=== PATIENT | male | born 1935 | race Caucasian/White ===

== ENCOUNTER 2022-11-20 16:47 | Emergency (ER) | payer MEDICARE, MEDICAID, SELFPAY ==
--- NOTE | ~2022-11-20 | XR_ITS ---
EXAMINATION: XR CHEST CLINICAL INFORMATION: Failure to thrive COMPARISON: None available. TECHNIQUE: Frontal view of the chest was obtained. FINDINGS: No significant abnormality is noted involving the heart, lungs, mediastinum, bony thorax or soft tissues. XR/XR chest 1V IMPRESSION: Unremarkable examination.
--- NOTE | 2022-11-20 17:12 | ED_ITS ---
HPI - General Adult General Chief complaint: General Medical <GENNARO Falcon - Last Filed: 11/20/22 17:18> Stated complaint: failure to thrive <GENNARO Falcon - Last Filed: 11/20/22 17:18> Time Seen by Provider: 11/20/22 21:42 <GENNARO Falcon - Last Filed: 11/20/22 17:18> Source: patient <Jim Costello MD - Last Filed: 11/21/22 06:14> Mode of arrival: EMS <Jim Costello MD - Last Filed: 11/21/22 06:14> Limitations: no limitations <Jim Costello MD - Last Filed: 11/21/22 06:14> History of Present Illness HPI narrative: 87-year-old male presents with difficulty taking care of himself. Patient reports having been discharged not too long ago from [facility]. Since then, he has had increasing difficulty taking care of himself. He lives by hi mself at home. He has been having difficulty taking his medications, eating and other ADLs. Patient denies any fevers, chills, cough, nausea, vomiting. He had 1 episode of diarrhea yesterday but that has since resolved. Denies any abdominal pain, urinary frequency, urgency or dysuria. He says this has been going on over the past 1-2 months and has been progressively getting worse. He denies any focal neurologic deficits. He describes as generalized weakness as severe in nature. Patient is unable to ambulate without significant assistance. There is no clear relieving or exacerbating features per <Jim Costello MD - Last Filed: 11/21/22 06:14> Related Data Home medications: Home Medications Medication Instructions Recorded Confirmed apixaban 5 mg tablet (Eliquis) 5 mg PO BID 11/21/22 11/21/22 cyanocobalamin (vitamin B-12) 1,000 mcg PO DAILY 11/21/22 11/21/22 1,000 mcg tablet lorazepam 1 mg tablet 1 mg PO BID PRN anxiety 11/21/22 11/21/22 metoprolol tartrate 50 mg tablet 50 mg PO BID 11/21/22 11/21/22 mirtazapine 30 mg tablet 30 mg PO BEDTIME 11/21/22 11/21/22 sertraline 25 mg tablet 25 mg PO DAILY 11/21/22 11/21/22 tamsulosin 0.4 mg capsule 0.4 mg PO BEDTIME 11/21/22 11/21/22 Previous Rx's Medication Instructions Recorded lorazepam 1 mg tablet (Ativan) 1 mg PO BID PRN anxiety #30 tabs 11/25/22 <GENNARO Falcon - Last Filed: 11/20/22 17:18> Allergies/adverse reactions: Allergies Allergy/AdvReac Type Severity Reaction Status Date / Time No Known Allergies Allergy Verified 11/20/22 17:14 <GENNARO Falcon - Last Filed: 11/20/22 17:18> [facility] Social History Social History: Social History Alcohol intake: never Smoked in Last 30 Days: No Use of substances other than those prescribed or required for medical reasons: No Advance Directives: Yes Advance Directives on File: Yes Advance Directives Date on File: 11/22/22 <GENNARO Falcon - Last Filed: 11/20/22 17:18> Physical Exam ED Vital Signs: Vital Signs - 24 hr 11/24/22 16:26 11/24/22 19:50 11/25/22 06:00 Temperature 97.6 F 98.1 F 98.6 F Pulse Rate 65 66 57 Respiratory Rate 16 18 15 Blood Pressure 116/61 113/63 125/62 Pulse Oximetry 98 97 98 Oxygen Delivery Method Room Air Room Air Room Air 11/25/22 09:17 Temperature Pulse Rate 70 Respiratory Rate 16 Blood Pressure 130/57 L Pulse Oximetry 97 Oxygen Delivery Method Room Air BMI result Body Mass Index 32.5 <GENNARO Falcon - Last Filed: 11/20/22 17:18> Vital Signs - 24 hr 11/24/22 16:26 11/24/22 19:50 11/25/22 06:00 Temperature 97.6 F 98.1 F 98.6 F Pulse Rate 65 66 57 Respiratory Rate 16 18 15 Blood Pressure 116/61 113/63 125/62 Pulse Oximetry 98 97 98 Oxygen Delivery Method Room Air Room Air Room Air 11/25/22 09:17 Temperature Pulse Rate 70 Respiratory Rate 16 Blood Pressure 130/57 L Pulse Oximetry 97 Oxygen Delivery Method Room Air BMI result Body Mass Index 32.5 <Jim Costello MD - Last Filed: 11/21/22 06:14> Vital Signs - 24 hr 11/24/22 16:26 11/24/22 19:50 11/25/22 06:00 Temperature 97.6 F 98.1 F 98.6 F Pulse Rate 65 66 57 Respiratory Rate 16 18 15 Blood Pressure 116/61 113/63 125/62 Pulse Oximetry 98 97 98 Oxygen Delivery Method Room Air Room Air Room Air 11/25/22 09:17 Temperature Pulse Rate 70 Respiratory Rate 16 Blood Pressure 130/57 L Pulse Oximetry 97 Oxygen Delivery Method Room Air BMI result Body Mass Index 32.5 <Dee Dee Harris NP - Last Filed: 11/23/22 12:40> Vital Signs - 24 hr 11/24/22 16:26 11/24/22 19:50 11/25/22 06:00 Temperature 97.6 F 98.1 F 98.6 F Pulse Rate 65 66 57 Respiratory Rate 16 18 15 Blood Pressure 116/61 113/63 125/62 Pulse Oximetry 98 97 98 Oxygen Delivery Method Room Air Room Air Room Air 11/25/22 09:17 Temperature Pulse Rate 70 Respiratory Rate 16 Blood Pressure 130/57 L Pulse Oximetry 97 Oxygen Delivery Method Room Air BMI result Body Mass Index 32.5 <GENNARO Grajeda - Last Filed: 11/22/22 17:54> Vital Signs - 24 hr 11/24/22 16:26 11/24/22 19:50 11/25/22 06:00 Temperature 97.6 F 98.1 F 98.6 F Pulse Rate 65 66 57 Respiratory Rate 16 18 15 Blood Pressure 116/61 113/63 125/62 Pulse Oximetry 98 97 98 Oxygen Delivery Method Room Air Room Air Room Air 11/25/22 09:17 Temperature Pulse Rate 70 Respiratory Rate 16 Blood Pressure 130/57 L Pulse Oximetry 97 Oxygen Delivery Method Room Air BMI result Body Mass Index 32.5 <GENNARO Webster - Last Filed: 11/25/22 12:51> GEN: Well developed, no acute distress, alert, oriented HEENT: Normocephalic, atraumatic, normal external ears, nose appears normal, no oropharyngeal edema or exudates Eyes: Normal to appearance Neck: Supple, no lymphadenopathy Respiratory: Talks in complete sentences, no respiratory distress, clear to auscultation bilaterally Cardiovascular: Regular rate and rhythm, no murmurs rubs or gallops Abdomen: Soft, nontender, nondistended, no guarding, no rebound Back: No CVA tenderness Extremities: No clubbing cyanosis or edema Neurologic: No focal neurologic deficits, cranial nerves 2-12 intact, strength is 5/5 bilaterally Skin: No rash <Jim Costello MD - Last Filed: 11/21/22 06:14> Course Course Course Narrative: RME--87yo M with PMHx HTN, on Eliquis, OA, Dementia, c/o presenting to ED with daughter c/o FTT worsening over the past few weeks. Daughter reports patient unable to care for himself, decreased p.o. intake, not taking medications, unsteady on feet. Patient lives home alone, periodically people check on him, feels patient is not safe. Patient with multiple hospital visits to [facility] and [facility], daughter states patient keeps getting discharged EKG, labs, UA, CXR, COVID/FLU ordered <GENNARO Falcon - Last Filed: 11/20/22 17:18> Reevaluation(s) Reevaluation #1: The workup is currently complete. There are no significant metabolic abnormalities. Chest x-ray was without pneumonia. There is no evidence of urinary tract infection. At this point, patient will be held overnight pending Case Management Physical therapy evaluation for short-term rehabilitation or other form of facility placement. <Jim Costello MD - Last Filed: 11/21/22 06:14> Time: 21:58 <Jim Costello MD - Last Filed: 11/21/22 06:14> Reevaluation #2: Receive records from [facility]. Patient was admitted on October 16, 2022. He was diagnosed with altered mental status, troponin elevation, atrial fibrillation with rapid ventricular response hypertension and depression. He was discharged on Eliquis. All patient also per reading of the chart has a history of dementia. Will order patient's medications. <Jim Costello MD - Last Filed: 11/21/22 06:14> Reevaluation #3: patient placed in physician obs pending case management and PT eval <Jim Costello MD - Last Filed: 11/21/22 06:14> Time: 00:18 <Jim Costello MD - Last Filed: 11/21/22 06:14> Additional Reevaluation(s): Patient transitioned to oncoming ED provider 6:30 AM <Jim Costello MD - Last Filed: 11/21/22 06:14> Patient transitioned to oncoming ED provider 6:30 AM 11/22 1815-patient is currently pending a physical therapy evaluation and case management involvement. Medications were reconciled. I spoke to the nurse and the transplant case manager today. Vital signs reviewed and stable. Nursing informed me the patient has a wound on his right buttocks. She tells me the wound was cleansed and a dressing was applied. Nursing is concerned they might need a wound care consultation which I am not sure will be able to happen in the emergency room setting. This will need to be assessed tomorrow by the RACHID. continue physician observation pending disposition 11/22 17:52 - physician observation continued. patient seen by Physical therapy this morning. They are recommending short-term rehab upon discharge for optimal functional gains prior to returning home alone. Case Management is on board. Home medications have been restarted. Will follow up with case management regarding placement. 11/23 1240-No complaints from nursing overnight.? Vital signs reviewed and stable.? Will continue physician observation pending disposition. <Dee Dee Harris NP - Last Filed: 11/23/22 12:40> Patient transitioned to oncoming ED provider 6:30 AM 11/22 1815-patient is currently pending a physical therapy evaluation and case management involvement. Medications were reconciled. I spoke to the nurse and the transplant case manager today. Vital signs reviewed and stable. Nursing informed me the patient has a wound on his right buttocks. She tells me the wound was cleansed and a dressing was applied. Nursing is concerned they might need a wound care consultation which I am not sure will be able to happen in the emergency room setting. This will need to be assessed tomorrow by the RACHID. continue physician observation pending disposition 11/22 17:52 - physician observation continued. patient seen by Physical therapy this morning. They are recommending short-term rehab upon discharge for optimal functional gains prior to returning home alone. Case Management is on board. Home medications have been restarted. Will follow up with case management regarding placement. <GENNARO Grajeda - Last Filed: 11/22/22 17:54> Patient transitioned to oncoming ED provider 6:30 AM 11/21 1816-patient is currently pending a physical therapy evaluation and case management involvement. Medications were reconciled. I spoke to the nurse and the transplant case manager today. Vital signs reviewed and stable. Nursing informed me the patient has a wound on his right buttocks. She tells me the wound was cleansed and a dressing was applied. Nursing is concerned they might need a wound care consultation which I am not sure will be able to happen in the emergency room setting. This will need to be assessed tomorrow by the RACHID. continue physician observation pending disposition 11/22 17:52 - physician observation continued. patient seen by Physical therapy this morning. They are recommending short-term rehab upon discharge for optimal functional gains prior to returning home alone. Case Management is on board. Home medications have been restarted. Will follow up with case management regarding placement. 11/23 1240-No complaints from nursing overnight.? Vital signs reviewed and stable.? Will continue physician observation pending disposition. 11/24/2022 0817 - Physician observation continues. Patient is pending STR placement. 11/25/2022 1250 Patient accepted at [facility]. Patient to be discharged. <GENNARO Webster - Last Filed: 11/25/22 12:51> Medications Administered Generic Name Dose Route Start Last Admin Trade Name Freq PRN Reason Stop Dose Admin Acetaminophen 650 mg 11/23/22 19:34 11/24/22 08:31 Acetaminophen 325 Mg Tablet PO 650 mg RQ6H PRN Administration Pain, Moderate (Pain Scale 4-6 Apixaban 5 mg 11/21/22 21:00 11/25/22 09:19 Apixaban 5 Mg Tablet PO 5 mg BID FRANTZ Administration Cyanocobalamin 1,000 mcg 11/21/22 17:45 11/25/22 09:19 Cyanocobalamin (Vitamin B-12) 1,000 Mcg Tablet PO 1,000 mcg DAILY FRANTZ Administration Lorazepam 1 mg 11/21/22 17:38 11/25/22 09:19 Lorazepam 1 Mg Tablet PO 1 mg BID PRN Administration anxiety Metoprolol Tartrate 50 mg 11/21/22 21:00 11/25/22 09:19 Metoprolol Tartrate 50 Mg Tablet PO 50 mg BID FRANTZ Administration Protocol Mirtazapine 30 mg 11/21/22 21:00 11/24/22 20:04 Mirtazapine 30 Mg Tablet PO 30 mg BEDTIME FRANTZ Administration Sertraline HCl 25 mg 11/21/22 17:45 11/25/22 09:19 Sertraline Hcl 25 Mg Tablet PO 25 mg DAILY FRANTZ Administration Tamsulosin HCl 0.4 mg 11/21/22 21:00 11/24/22 20:04 Tamsulosin Hcl 0.4 Mg Capsule PO 0.4 mg BEDTIME FRANTZ Administration Discontinued Medications Generic Name Dose Route Start Last Admin Trade Name Freq PRN Reason Stop Dose Admin Acetaminophen 650 mg 11/22/22 01:04 11/22/22 01:10 Acetaminophen 325 Mg Tablet PO 11/22/22 01:05 650 mg ONCE ONE Administration Apixaban 5 mg 11/20/22 22:49 11/20/22 23:16 Apixaban 5 Mg Tablet PO 11/20/22 22:50 5 mg BID ONE Administration Cyanocobalamin 1,000 mcg 11/21/22 09:00 11/21/22 08:20 Cyanocobalamin (Vitamin B-12) 1,000 Mcg Tablet PO 11/21/22 09:01 1,000 mcg DAILY ONE Administration Lorazepam 1 mg 11/20/22 22:49 11/21/22 08:08 Lorazepam 1 Mg Tablet PO 1 mg BID PRN Administration Anxiety Metoprolol Tartrate 50 mg 11/20/22 22:49 11/20/22 23:16 Metoprolol Tartrate 50 Mg Tablet PO 11/20/22 22:50 50 mg BID ONE Administration Protocol Mirtazapine 22.5 mg 11/20/22 22:49 11/20/22 23:16 Mirtazapine 7.5 Mg Tablet PO 11/20/22 22:50 22.5 mg ONCE ONE Administration Tamsulosin HCl 0.4 mg 11/20/22 22:49 11/20/22 23:16 Tamsulosin Hcl 0.4 Mg Capsule PO 11/20/22 22:50 0.4 mg ONCE ONE Administration <GENNARO Falcon - Last Filed: 11/20/22 17:18> Medications Administered Generic Name Dose Route Start Last Admin Trade Name Freq PRN Reason Stop Dose Admin Acetaminophen 650 mg 11/23/22 19:34 11/24/22 08:31 Acetaminophen 325 Mg Tablet PO 650 mg RQ6H PRN Administration Pain, Moderate (Pain Scale 4-6 Apixaban 5 mg 11/21/22 21:00 11/25/22 09:19 Apixaban 5 Mg Tablet PO 5 mg BID FRANTZ Administration Cyanocobalamin 1,000 mcg 11/21/22 17:45 11/25/22 09:19 Cyanocobalamin (Vitamin B-12) 1,000 Mcg Tablet PO 1,000 mcg DAILY FRANTZ Administration Lorazepam 1 mg 11/21/22 17:38 11/25/22 09:19 Lorazepam 1 Mg Tablet PO 1 mg BID PRN Administration anxiety Metoprolol Tartrate 50 mg 11/21/22 21:00 11/25/22 09:19 Metoprolol Tartrate 50 Mg Tablet PO 50 mg BID FRANTZ Administration Protocol Mirtazapine 30 mg 11/21/22 21:00 11/24/22 20:04 Mirtazapine 30 Mg Tablet PO 30 mg BEDTIME FRANTZ Administration Sertraline HCl 25 mg 11/21/22 17:45 11/25/22 09:19 Sertraline Hcl 25 Mg Tablet PO 25 mg DAILY FRANTZ Administration Tamsulosin HCl 0.4 mg 11/21/22 21:00 11/24/22 20:04 Tamsulosin Hcl 0.4 Mg Capsule PO 0.4 mg BEDTIME FRANTZ Administration Discontinued Medications Generic Name Dose Route Start Last Admin Trade Name Freq PRN Reason Stop Dose Admin Acetaminophen 650 mg 11/22/22 01:04 11/22/22 01:10 Acetaminophen 325 Mg Tablet PO 11/22/22 01:05 650 mg ONCE ONE Administration Apixaban 5 mg 11/20/22 22:49 11/20/22 23:16 Apixaban 5 Mg Tablet PO 11/20/22 22:50 5 mg BID ONE Administration Cyanocobalamin 1,000 mcg 11/21/22 09:00 11/21/22 08:20 Cyanocobalamin (Vitamin B-12) 1,000 Mcg Tablet PO 11/21/22 09:01 1,000 mcg DAILY ONE Administration Lorazepam 1 mg 11/20/22 22:49 11/21/22 08:08 Lorazepam 1 Mg Tablet PO 1 mg BID PRN Administration Anxiety Metoprolol Tartrate 50 mg 11/20/22 22:49 11/20/22 23:16 Metoprolol Tartrate 50 Mg Tablet PO 11/20/22 22:50 50 mg BID ONE Administration Protocol Mirtazapine 22.5 mg 11/20/22 22:49 11/20/22 23:16 Mirtazapine 7.5 Mg Tablet PO 11/20/22 22:50 22.5 mg ONCE ONE Administration Tamsulosin HCl 0.4 mg 11/20/22 22:49 11/20/22 23:16 Tamsulosin Hcl 0.4 Mg Capsule PO 11/20/22 22:50 0.4 mg ONCE ONE Administration <Jim Costello MD - Last Filed: 11/21/22 06:14> Medications Administered Generic Name Dose Route Start Last Admin Trade Name Freq PRN Reason Stop Dose Admin Acetaminophen 650 mg 11/23/22 19:34 11/24/22 08:31 Acetaminophen 325 Mg Tablet PO 650 mg RQ6H PRN Administration Pain, Moderate (Pain Scale 4-6 Apixaban 5 mg 11/21/22 21:00 11/25/22 09:19 Apixaban 5 Mg Tablet PO 5 mg BID FRANTZ Administration Cyanocobalamin 1,000 mcg 11/21/22 17:45 11/25/22 09:19 Cyanocobalamin (Vitamin B-12) 1,000 Mcg Tablet PO 1,000 mcg DAILY FRANTZ Administration Lorazepam 1 mg 11/21/22 17:38 11/25/22 09:19 Lorazepam 1 Mg Tablet PO 1 mg BID PRN Administration anxiety Metoprolol Tartrate 50 mg 11/21/22 21:00 11/25/22 09:19 Metoprolol Tartrate 50 Mg Tablet PO 50 mg BID FRANTZ Administration Protocol Mirtazapine 30 mg 11/21/22 21:00 11/24/22 20:04 Mirtazapine 30 Mg Tablet PO 30 mg BEDTIME FRANTZ Administration Sertraline HCl 25 mg 11/21/22 17:45 11/25/22 09:19 Sertraline Hcl 25 Mg Tablet PO 25 mg DAILY FRANTZ Administration Tamsulosin HCl 0.4 mg 11/21/22 21:00 11/24/22 20:04 Tamsulosin Hcl 0.4 Mg Capsule PO 0.4 mg BEDTIME FRANTZ Administration Discontinued Medications Generic Name Dose Route Start Last Admin Trade Name Freq PRN Reason Stop Dose Admin Acetaminophen 650 mg 11/22/22 01:04 11/22/22 01:10 Acetaminophen 325 Mg Tablet PO 11/22/22 01:05 650 mg ONCE ONE Administration Apixaban 5 mg 11/20/22 22:49 11/20/22 23:16 Apixaban 5 Mg Tablet PO 11/20/22 22:50 5 mg BID ONE Administration Cyanocobalamin 1,000 mcg 11/21/22 09:00 11/21/22 08:20 Cyanocobalamin (Vitamin B-12) 1,000 Mcg Tablet PO 11/21/22 09:01 1,000 mcg DAILY ONE Administration Lorazepam 1 mg 11/20/22 22:49 11/21/22 08:08 Lorazepam 1 Mg Tablet PO 1 mg BID PRN Administration Anxiety Metoprolol Tartrate 50 mg 11/20/22 22:49 11/20/22 23:16 Metoprolol Tartrate 50 Mg Tablet PO 11/20/22 22:50 50 mg BID ONE Administration Protocol Mirtazapine 22.5 mg 11/20/22 22:49 11/20/22 23:16 Mirtazapine 7.5 Mg Tablet PO 11/20/22 22:50 22.5 mg ONCE ONE Administration Tamsulosin HCl 0.4 mg 11/20/22 22:49 11/20/22 23:16 Tamsulosin Hcl 0.4 Mg Capsule PO 11/20/22 22:50 0.4 mg ONCE ONE Administration <Dee Dee Harris, [employer] - Last Filed: 11/23/22 12:40> Medications Administered Generic Name Dose Route Start Last Admin Trade Name Chari PRN Reason Stop Dose Admin Acetaminophen 650 mg 11/23/22 19:34 11/24/22 08:31 Acetaminophen 325 Mg Tablet PO 650 mg RQ6H PRN Administration Pain, Moderate (Pain Scale 4-6 Apixaban 5 mg 11/21/22 21:00 11/25/22 09:19 Apixaban 5 Mg Tablet PO 5 mg BID FRANTZ Administration Cyanocobalamin 1,000 mcg 11/21/22 17:45 11/25/22 09:19 Cyanocobalamin (Vitamin B-12) 1,000 Mcg Tablet PO 1,000 mcg DAILY FRANTZ Administration Lorazepam 1 mg 11/21/22 17:38 11/25/22 09:19 Lorazepam 1 Mg Tablet PO 1 mg BID PRN Administration anxiety Metoprolol Tartrate 50 mg 11/21/22 21:00 11/25/22 09:19 Metoprolol Tartrate 50 Mg Tablet PO 50 mg BID FRANTZ Administration Protocol Mirtazapine 30 mg 11/21/22 21:00 11/24/22 20:04 Mirtazapine 30 Mg Tablet PO 30 mg BEDTIME FRANTZ Administration Sertraline HCl 25 mg 11/21/22 17:45 11/25/22 09:19 Sertraline Hcl 25 Mg Tablet PO 25 mg DAILY FRANTZ Administration Tamsulosin HCl 0.4 mg 11/21/22 21:00 11/24/22 20:04 Tamsulosin Hcl 0.4 Mg Capsule PO 0.4 mg BEDTIME FRANTZ Administration Discontinued Medications Generic Name Dose Route Start Last Admin Trade Name Ismaq PRN Reason Stop Dose Admin Acetaminophen 650 mg 11/22/22 01:04 11/22/22 01:10 Acetaminophen 325 Mg Tablet PO 11/22/22 01:05 650 mg ONCE ONE Administration Apixaban 5 mg 11/20/22 22:49 11/20/22 23:16 Apixaban 5 Mg Tablet PO 11/20/22 22:50 5 mg BID ONE Administration Cyanocobalamin 1,000 mcg 11/21/22 09:00 11/21/22 08:20 Cyanocobalamin (Vitamin B-12) 1,000 Mcg Tablet PO 11/21/22 09:01 1,000 mcg DAILY ONE Administration Lorazepam 1 mg 11/20/22 22:49 11/21/22 08:08 Lorazepam 1 Mg Tablet PO 1 mg BID PRN Administration Anxiety Metoprolol Tartrate 50 mg 11/20/22 22:49 11/20/22 23:16 Metoprolol Tartrate 50 Mg Tablet PO 11/20/22 22:50 50 mg BID ONE Administration Protocol Mirtazapine 22.5 mg 11/20/22 22:49 11/20/22 23:16 Mirtazapine 7.5 Mg Tablet PO 11/20/22 22:50 22.5 mg ONCE ONE Administration Tamsulosin HCl 0.4 mg 11/20/22 22:49 11/20/22 23:16 Tamsulosin Hcl 0.4 Mg Capsule PO 11/20/22 22:50 0.4 mg ONCE ONE Administration <GENNARO Grajeda - Last Filed: 11/22/22 17:54> Medications Administered Generic Name Dose Route Start Last Admin Trade Name Chari PRN Reason Stop Dose Admin Acetaminophen 650 mg 11/23/22 19:34 11/24/22 08:31 Acetaminophen 325 Mg Tablet PO 650 mg RQ6H PRN Administration Pain, Moderate (Pain Scale 4-6 Apixaban 5 mg 11/21/22 21:00 11/25/22 09:19 Apixaban 5 Mg Tablet PO 5 mg BID FRANTZ Administration Cyanocobalamin 1,000 mcg 11/21/22 17:45 11/25/22 09:19 Cyanocobalamin (Vitamin B-12) 1,000 Mcg Tablet PO 1,000 mcg DAILY FRANTZ Administration Lorazepam 1 mg 11/21/22 17:38 11/25/22 09:19 Lorazepam 1 Mg Tablet PO 1 mg BID PRN Administration anxiety Metoprolol Tartrate 50 mg 11/21/22 21:00 11/25/22 09:19 Metoprolol Tartrate 50 Mg Tablet PO 50 mg BID FRANTZ Administration Protocol Mirtazapine 30 mg 11/21/22 21:00 11/24/22 20:04 Mirtazapine 30 Mg Tablet PO 30 mg BEDTIME FRANTZ Administration Sertraline HCl 25 mg 11/21/22 17:45 11/25/22 09:19 Sertraline Hcl 25 Mg Tablet PO 25 mg DAILY FRANTZ Administration Tamsulosin HCl 0.4 mg 11/21/22 21:00 11/24/22 20:04 Tamsulosin Hcl 0.4 Mg Capsule PO 0.4 mg BEDTIME FRANTZ Administration Discontinued Medications Generic Name Dose Route Start Last Admin Trade Name Ismaq PRN Reason Stop Dose Admin Acetaminophen 650 mg 11/22/22 01:04 11/22/22 01:10 Acetaminophen 325 Mg Tablet PO 11/22/22 01:05 650 mg ONCE ONE Administration Apixaban 5 mg 11/20/22 22:49 11/20/22 23:16 Apixaban 5 Mg Tablet PO 11/20/22 22:50 5 mg BID ONE Administration Cyanocobalamin 1,000 mcg 11/21/22 09:00 11/21/22 08:20 Cyanocobalamin (Vitamin B-12) 1,000 Mcg Tablet PO 11/21/22 09:01 1,000 mcg DAILY ONE Administration Lorazepam 1 mg 11/20/22 22:49 11/21/22 08:08 Lorazepam 1 Mg Tablet PO 1 mg BID PRN Administration Anxiety Metoprolol Tartrate 50 mg 11/20/22 22:49 11/20/22 23:16 Metoprolol Tartrate 50 Mg Tablet PO 11/20/22 22:50 50 mg BID ONE Administration Protocol Mirtazapine 22.5 mg 11/20/22 22:49 11/20/22 23:16 Mirtazapine 7.5 Mg Tablet PO 11/20/22 22:50 22.5 mg ONCE ONE Administration Tamsulosin HCl 0.4 mg 11/20/22 22:49 11/20/22 23:16 Tamsulosin Hcl 0.4 Mg Capsule PO 11/20/22 22:50 0.4 mg ONCE ONE Administration <GENNARO Webster - Last Filed: 11/25/22 12:51> Medical Decision Making Medical Decision Making MDM Narrative: 87-year-old male presents with generalized weakness. Examination was nonfocal. Offers no complaint other complaints. Will check for anemia, renal dysfunction, electrolyte abnormalities such as hypokalemia or hyponatremia, check for urinary tract infection, pneumonia, viral serology. If the studies are negative, patient will need to be held in the emergency department overnight pending Case Management Physical therapy for short-term placement <Jim Costello MD - Last Filed: 11/21/22 06:14> Differential Diagnosis Differential Diagnoses: The differential diagnosis associated with the presentation includes (Failure to thrive, generalized weakness, hyponatremia, hypokalemia, UTI, pneumo darlene, viral infection) <Jim Costello MD - Last Filed: 11/21/22 06:14> Generalized weakness <Jim Costello MD - Last Filed: 11/21/22 06:14> Admission/Observation Consideration of admission/observation: Escalation of care including admission/observation considered <Jim Costello MD - Last Filed: 11/21/22 06:14> Consult Healthcare Provider Management of the patient was discussed with: Rayon Winder <Jim Costello MD - Last Filed: 11/21/22 06:14> Lab Data MDM Lab Attestation statement: I reviewed the patient's lab results. <Jim Costello MD - Last Filed: 11/21/22 06:14> Result Diagrams: 11/20/22 17:55 11/20/22 17:55 <GENNARO Falcon - Last Filed: 11/20/22 17:18> Labs: Lab Results 11/20/22 11/20/22 11/20/22 Range/Units 17:55 17:55 17:55 WBC 6.1 (4.8-10.8) X10*3/uL RBC 4.14 L (4.60-5.80) X10*6/uL Hgb 11.8 L (14.0-18.0) g/dl Hct 36.3 L (42.0-52.0) % MCV 87.7 (80.0-98.0) fL MCH 28.5 (27.0-33.0) pg MCHC 32.5 (31.0-36.0) g/dl RDW 13.9 (11.0-16.0) % Plt Count 269 (160-400) X10*3/uL MPV 10.2 (9.4-12.4) fL Immature Gran % (Auto) 0.7 H (0.0-0.4) % Neut % (Auto) 65.2 (45-73) % Lymph % (Auto) 26.5 (20-40) % [place] % (Auto) 5.3 (2-11) % Eos % (Auto) 2.1 (0-4) % Baso % (Auto) 0.2 (0-2) % Lymph # (Auto) 1.6 (1.2-4.9) X10*3/uL [place] # (Auto) 0.3 (0.1-1.2) X10*3/uL Eos # (Auto) 0.1 (0.0-0.4) X10*3/uL Baso # (Auto) 0.0 (0.0-0.2) X10*3/uL Abs Immat Gran (auto) 0.04 H (0.00-0.03) X10*3/uL Absolute Neuts (auto) 4.0 (2.0-8.3) x10*3/uL Absolute Nucleated RBC 0.000 (0.0-0.012) X10*3/uL Nucleated RBC % (auto) 0.0 (0.0-0.2) /100WBC Sodium 137 (135-145) mmol/L Potassium 4.2 (3.3-5.1) mmol/L Chloride 105 (96-108) mmol/L Carbon Dioxide 24 (22-29) mmol/L Anion Gap 12 (12-20) BUN 13 (9-16) mg/dL Creatinine 1.28 (0.5-1.4) mg/dL Estim Creat Clear Calc 53.7 Estimated GFR 53 Random Glucose 140 H (60-115) mg/dL Calcium 8.7 (8.4-10.2) mg/dL Magnesium 1.7 (1.6-2.6) mg/dL Total Bilirubin 0.5 (0.0-1.0) mg/dL Direct Bilirubin 0.2 (0.0-0.5) mg/dL AST 15 (5-37) U/L ALT 14 (0-40) U/L Alkaline Phosphatase 80 (39-117) U/L Troponin I High Sens 14.3 (<3.5-35.0) ng/L B-Natriuretic Peptide (<100) pg/mL Total Protein 6.9 (6.5-8.0) g/dL Albumin 3.6 (3.5-5.0) g/dL Lipase 59 (8-78) U/L Urine Color Urine Appearance Urine pH (5.0-9.0) Ur Specific [place] (1.005-1.025) Urine Protein (Neg-Trace) mg/dL Urine Glucose (UA) (Negative) mg/dL Urine Ketones (Negative) mg/dL Urine Blood (Negative) Urine Nitrite (Negative) Ur Leukocyte Esterase (Negative) COVID-19 ([facility]ITHA) (Negative) COVID-19 Clin Com Influenza Type A ([facility]) (Negative) Influenza Type B ([facility]) (Negative) Influenza A & B Note 11/20/22 11/20/22 11/20/22 Range/Units 17:55 17:55 17:55 WBC (4.8-10.8) X10*3/uL RBC (4.60-5.80) X10*6/uL Hgb (14.0-18.0) g/dl Hct (42.0-52.0) % MCV (80.0-98.0) fL MCH (27.0-33.0) pg MCHC (31.0-36.0) g/dl RDW (11.0-16.0) % Plt Count (160-400) X10*3/uL MPV (9.4-12.4) fL Immature Gran % (Auto) (0.0-0.4) % Neut % (Auto) (45-73) % Lymph % (Auto) (20-40) % [place] % (Auto) (2-11) % Eos % (Auto) (0-4) % Baso % (Auto) (0-2) % Lymph # (Auto) (1.2-4.9) X10*3/uL [place] # (Auto) (0.1-1.2) X10*3/uL Eos # (Auto) (0.0-0.4) X10*3/uL Baso # (Auto) (0.0-0.2) X10*3/uL Abs Immat Gran (auto) (0.00-0.03) X10*3/uL Absolute Neuts (auto) (2.0-8.3) x10*3/uL Absolute Nucleated RBC (0.0-0.012) X10*3/uL Nucleated RBC % (auto) (0.0-0.2) /100WBC Sodium (135-145) mmol/L Potassium (3.3-5.1) mmol/L Chloride (96-108) mmol/L Carbon Dioxide (22-29) mmol/L Anion Gap (12-20) BUN (9-16) mg/dL Creatinine (0.5-1.4) mg/dL Estim Creat Clear Calc Estimated GFR Random Glucose (60-115) mg/dL Calcium (8.4-10.2) mg/dL Magnesium (1.6-2.6) mg/dL Total Bilirubin (0.0-1.0) mg/dL Direct Bilirubin (0.0-0.5) mg/dL AST (5-37) U/L ALT (0-40) U/L Alkaline Phosphatase (39-117) U/L Troponin I High Sens (<3.5-35.0) ng/L B-Natriuretic Peptide 236 H (<100) pg/mL Total Protein (6.5-8.0) g/dL Albumin (3.5-5.0) g/dL Lipase (8-78) U/L Urine Color Urine Appearance Urine pH (5.0-9.0) Ur Specific [place] (1.005-1.025) Urine Protein (Neg-Trace) mg/dL Urine Glucose (UA) (Negative) mg/dL Urine Ketones (Negative) mg/dL Urine Blood (Negative) Urine Nitrite (Negative) Ur Leukocyte Esterase (Negative) COVID-19 (TABITHA) Negative (Negative) COVID-19 Clin Com See Note Influenza Type A ([facility]) Negative (Negative) Influenza Type B ([facility]) Negative (Negative) Influenza A & B Note See Note 11/20/22 11/20/22 Range/Units 20:28 21:19 WBC (4.8-10.8) X10*3/uL RBC (4.60-5.80) X10*6/uL Hgb (14.0-18.0) g/dl Hct (42.0-52.0) % MCV (80.0-98.0) fL MCH (27.0-33.0) pg MCHC (31.0-36.0) g/dl RDW (11.0-16.0) % Plt Count (160-400) X10*3/uL MPV (9.4-12.4) fL Immature Gran % (Auto) (0.0-0.4) % Neut % (Auto) (45-73) % Lymph % (Auto) (20-40) % [place] % (Auto) (2-11) % Eos % (Auto) (0-4) % Baso % (Auto) (0-2) % Lymph # (Auto) (1.2-4.9) X10*3/uL [place] # (Auto) (0.1-1.2) X10*3/uL Eos # (Auto) (0.0-0.4) X10*3/uL Baso # (Auto) (0.0-0.2) X10*3/uL Abs Immat Gran (auto) (0.00-0.03) X10*3/uL Absolute Neuts (auto) (2.0-8.3) x10*3/uL Absolute Nucleated RBC (0.0-0.012) X10*3/uL Nucleated RBC % (auto) (0.0-0.2) /100WBC Sodium (135-145) mmol/L Potassium (3.3-5.1) mmol/L Chloride (96-108) mmol/L Carbon Dioxide (22-29) mmol/L Anion Gap (12-20) BUN (9-16) mg/dL Creatinine (0.5-1.4) mg/dL Estim Creat Clear Calc Estimated GFR Random Glucose (60-115) mg/dL Calcium (8.4-10.2) mg/dL Magnesium (1.6-2.6) mg/dL Total Bilirubin (0.0-1.0) mg/dL Direct Bilirubin (0.0-0.5) mg/dL AST (5-37) U/L ALT (0-40) U/L Alkaline Phosphatase (39-117) U/L Troponin I High Sens 15.6 (<3.5-35.0) ng/L B-Natriuretic Peptide (<100) pg/mL Total Protein (6.5-8.0) g/dL Albumin (3.5-5.0) g/dL Lipase (8-78) U/L Urine Color Yellow Urine Appearance Clear Urine pH 5.0 (5.0-9.0) Ur Specific [place] 1.015 (1.005-1.025) Urine Protein Negative (Neg-Trace) mg/dL Urine Glucose (UA) Negative (Negative) mg/dL Urine Ketones Negative (Negative) mg/dL Urine Blood Negative (Negative) Urine Nitrite Negative (Negative) Ur Leukocyte Esterase Negative (Negative) COVID-19 (TABITHA) (Negative) COVID-19 Clin Com Influenza Type A ([facility]) (Negative) Influenza Type B ([facility]) (Negative) Influenza A & B Note <GENNARO Falcon - Last Filed: 11/20/22 17:18> Lab Results 11/20/22 11/20/22 11/20/22 Range/Units 17:55 17:55 17:55 WBC 6.1 (4.8-10.8) X10*3/uL RBC 4.14 L (4.60-5.80) X10*6/uL Hgb 11.8 L (14.0-18.0) g/dl Hct 36.3 L (42.0-52.0) % MCV 87.7 (80.0-98.0) fL MCH 28.5 (27.0-33.0) pg MCHC 32.5 (31.0-36.0) g/dl RDW 13.9 (11.0-16.0) % Plt Count 269 (160-400) X10*3/uL MPV 10.2 (9.4-12.4) fL Immature Gran % (Auto) 0.7 H (0.0-0.4) % Neut % (Auto) 65.2 (45-73) % Lymph % (Auto) 26.5 (20-40) % [place] % (Auto) 5.3 (2-11) % Eos % (Auto) 2.1 (0-4) % Baso % (Auto) 0.2 (0-2) % Lymph # (Auto) 1.6 (1.2-4.9) X10*3/uL [place] # (Auto) 0.3 (0.1-1.2) X10*3/uL Eos # (Auto) 0.1 (0.0-0.4) X10*3/uL Baso # (Auto) 0.0 (0.0-0.2) X10*3/uL Abs Immat Gran (auto) 0.04 H (0.00-0.03) X10*3/uL Absolute Neuts (auto) 4.0 (2.0-8.3) x10*3/uL Absolute Nucleated RBC 0.000 (0.0-0.012) X10*3/uL Nucleated RBC % (auto) 0.0 (0.0-0.2) /100WBC Sodium 137 (135-145) mmol/L Potassium 4.2 (3.3-5.1) mmol/L Chloride 105 (96-108) mmol/L Carbon Dioxide 24 (22-29) mmol/L Anion Gap 12 (12-20) BUN 13 (9-16) mg/dL Creatinine 1.28 (0.5-1.4) mg/dL Estim Creat Clear Calc 53.7 Estimated GFR 53 Random Glucose 140 H (60-115) mg/dL Calcium 8.7 (8.4-10.2) mg/dL Magnesium 1.7 (1.6-2.6) mg/dL Total Bilirubin 0.5 (0.0-1.0) mg/dL Direct Bilirubin 0.2 (0.0-0.5) mg/dL AST 15 (5-37) U/L ALT 14 (0-40) U/L Alkaline Phosphatase 80 (39-117) U/L Troponin I High Sens 14.3 (<3.5-35.0) ng/L B-Natriuretic Peptide (<100) pg/mL Total Protein 6.9 (6.5-8.0) g/dL Albumin 3.6 (3.5-5.0) g/dL Lipase 59 (8-78) U/L Urine Color Urine Appearance Urine pH (5.0-9.0) Ur Specific [place] (1.005-1.025) Urine Protein (Neg-Trace) mg/dL Urine Glucose (UA) (Negative) mg/dL Urine Ketones (Negative) mg/dL Urine Blood (Negative) Urine Nitrite (Negative) Ur Leukocyte Esterase (Negative) COVID-19 (TABITHA) (Negative) COVID-19 Clin Com Influenza Type A ([facility]) (Negative) Influenza Type B ([facility]) (Negative) Influenza A & B Note 11/20/22 11/20/22 11/20/22 Range/Units 17:55 17:55 17:55 WBC (4.8-10.8) X10*3/uL RBC (4.60-5.80) X10*6/uL Hgb (14.0-18.0) g/dl Hct (42.0-52.0) % MCV (80.0-98.0) fL MCH (27.0-33.0) pg MCHC (31.0-36.0) g/dl RDW (11.0-16.0) % Plt Count (160-400) X10*3/uL MPV (9.4-12.4) fL Immature Gran % (Auto) (0.0-0.4) % Neut % (Auto) (45-73) % Lymph % (Auto) (20-40) % [place] % (Auto) (2-11) % Eos % (Auto) (0-4) % Baso % (Auto) (0-2) % Lymph # (Auto) (1.2-4.9) X10*3/uL [place] # (Auto) (0.1-1.2) X10*3/uL Eos # (Auto) (0.0-0.4) X10*3/uL Baso # (Auto) (0.0-0.2) X10*3/uL Abs Immat Gran (auto) (0.00-0.03) X10*3/uL Absolute Neuts (auto) (2.0-8.3) x10*3/uL Absolute Nucleated RBC (0.0-0.012) X10*3/uL Nucleated RBC % (auto) (0.0-0.2) /100WBC Sodium (135-145) mmol/L Potassium (3.3-5.1) mmol/L Chloride (96-108) mmol/L Carbon Dioxide (22-29) mmol/L Anion Gap (12-20) BUN (9-16) mg/dL Creatinine (0.5-1.4) mg/dL Estim Creat Clear Calc Estimated GFR Random Glucose (60-115) mg/dL Calcium (8.4-10.2) mg/dL Magnesium (1.6-2.6) mg/dL Total Bilirubin (0.0-1.0) mg/dL Direct Bilirubin (0.0-0.5) mg/dL AST (5-37) U/L ALT (0-40) U/L Alkaline Phosphatase (39-117) U/L Troponin I High Sens (<3.5-35.0) ng/L B-Natriuretic Peptide 236 H (<100) pg/mL Total Protein (6.5-8.0) g/dL Albumin (3.5-5.0) g/dL Lipase (8-78) U/L Urine Color Urine Appearance Urine pH (5.0-9.0) Ur Specific [place] (1.005-1.025) Urine Protein (Neg-Trace) mg/dL Urine Glucose (UA) (Negative) mg/dL Urine Ketones (Negative) mg/dL Urine Blood (Negative) Urine Nitrite (Negative) Ur Leukocyte Esterase (Negative) COVID-19 (TABITHA) Negative (Negative) COVID-19 Clin Com See Note Influenza Type A ([facility]) Negative (Negative) Influenza Type B ([facility]) Negative (Negative) Influenza A & B Note See Note 11/20/22 11/20/22 Range/Units 20:28 21:19 WBC (4.8-10.8) X10*3/uL RBC (4.60-5.80) X10*6/uL Hgb (14.0-18.0) g/dl Hct (42.0-52.0) % MCV (80.0-98.0) fL MCH (27.0-33.0) pg MCHC (31.0-36.0) g/dl RDW (11.0-16.0) % Plt Count (160-400) X10*3/uL MPV (9.4-12.4) fL Immature Gran % (Auto) (0.0-0.4) % Neut % (Auto) (45-73) % Lymph % (Auto) (20-40) % [place] % (Auto) (2-11) % Eos % (Auto) (0-4) % Baso % (Auto) (0-2) % Lymph # (Auto) (1.2-4.9) X10*3/uL [place] # (Auto) (0.1-1.2) X10*3/uL Eos # (Auto) (0.0-0.4) X10*3/uL Baso # (Auto) (0.0-0.2) X10*3/uL Abs Immat Gran (auto) (0.00-0.03) X10*3/uL Absolute Neuts (auto) (2.0-8.3) x10*3/uL Absolute Nucleated RBC (0.0-0.012) X10*3/uL Nucleated RBC % (auto) (0.0-0.2) /100WBC Sodium (135-145) mmol/L Potassium (3.3-5.1) mmol/L Chloride (96-108) mmol/L Carbon Dioxide (22-29) mmol/L Anion Gap (12-20) BUN (9-16) mg/dL Creatinine (0.5-1.4) mg/dL Estim Creat Clear Calc Estimated GFR Random Glucose (60-115) mg/dL Calcium (8.4-10.2) mg/dL Magnesium (1.6-2.6) mg/dL Total Bilirubin (0.0-1.0) mg/dL Direct Bilirubin (0.0-0.5) mg/dL AST (5-37) U/L ALT (0-40) U/L Alkaline Phosphatase (39-117) U/L Troponin I High Sens 15.6 (<3.5-35.0) ng/L B-Natriuretic Peptide (<100) pg/mL Total Protein (6.5-8.0) g/dL Albumin (3.5-5.0) g/dL Lipase (8-78) U/L Urine Color Yellow Urine Appearance Clear Urine pH 5.0 (5.0-9.0) Ur Specific [place] 1.015 (1.005-1.025) Urine Protein Negative (Neg-Trace) mg/dL Urine Glucose (UA) Negative (Negative) mg/dL Urine Ketones Negative (Negative) mg/dL Urine Blood Negative (Negative) Urine Nitrite Negative (Negative) Ur Leukocyte Esterase Negative (Negative) COVID-19 (TAB[facility]A) (Negative) COVID-19 Clin Com Influenza Type A ([facility]) (Negative) Influenza Type B ([facility]) (Negative) Influenza A & B Note <Jim Costello MD - Last Filed: 11/21/22 06:14> Lab Results 11/20/22 11/20/22 11/20/22 Range/Units 17:55 17:55 17:55 WBC 6.1 (4.8-10.8) X10*3/uL RBC 4.14 L (4.60-5.80) X10*6/uL Hgb 11.8 L (14.0-18.0) g/dl Hct 36.3 L (42.0-52.0) % MCV 87.7 (80.0-98.0) fL MCH 28.5 (27.0-33.0) pg MCHC 32.5 (31.0-36.0) g/dl RDW 13.9 (11.0-16.0) % Plt Count 269 (160-400) X10*3/uL MPV 10.2 (9.4-12.4) fL Immature Gran % (Auto) 0.7 H (0.0-0.4) % Neut % (Auto) 65.2 (45-73) % Lymph % (Auto) 26.5 (20-40) % [place] % (Auto) 5.3 (2-11) % Eos % (Auto) 2.1 (0-4) % Baso % (Auto) 0.2 (0-2) % Lymph # (Auto) 1.6 (1.2-4.9) X10*3/uL [place] # (Auto) 0.3 (0.1-1.2) X10*3/uL Eos # (Auto) 0.1 (0.0-0.4) X10*3/uL Baso # (Auto) 0.0 (0.0-0.2) X10*3/uL Abs Immat Gran (auto) 0.04 H (0.00-0.03) X10*3/uL Absolute Neuts (auto) 4.0 (2.0-8.3) x10*3/uL Absolute Nucleated RBC 0.000 (0.0-0.012) X10*3/uL Nucleated RBC % (auto) 0.0 (0.0-0.2) /100WBC Sodium 137 (135-145) mmol/L Potassium 4.2 (3.3-5.1) mmol/L Chloride 105 (96-108) mmol/L Carbon Dioxide 24 (22-29) mmol/L Anion Gap 12 (12-20) BUN 13 (9-16) mg/dL Creatinine 1.28 (0.5-1.4) mg/dL Estim Creat Clear Calc 53.7 Estimated GFR 53 Random Glucose 140 H (60-115) mg/dL Calcium 8.7 (8.4-10.2) mg/dL Magnesium 1.7 (1.6-2.6) mg/dL Total Bilirubin 0.5 (0.0-1.0) mg/dL Direct Bilirubin 0.2 (0.0-0.5) mg/dL AST 15 (5-37) U/L ALT 14 (0-40) U/L Alkaline Phosphatase 80 (39-117) U/L Troponin I High Sens 14.3 (<3.5-35.0) ng/L B-Natriuretic Peptide (<100) pg/mL Total Protein 6.9 (6.5-8.0) g/dL Albumin 3.6 (3.5-5.0) g/dL Lipase 59 (8-78) U/L Urine Color Urine Appearance Urine pH (5.0-9.0) Ur Specific [place] (1.005-1.025) Urine Protein (Neg-Trace) mg/dL Urine Glucose (UA) (Negative) mg/dL Urine Ketones (Negative) mg/dL Urine Blood (Negative) Urine Nitrite (Negative) Ur Leukocyte Esterase (Negative) COVID-19 (TABITHA) (Negative) COVID-19 Clin Com Influenza Type A ([facility]) (Negative) Influenza Type B ([facility]) (Negative) Influenza A & B Note 11/20/22 11/20/22 11/20/22 Range/Units 17:55 17:55 17:55 WBC (4.8-10.8) X10*3/uL RBC (4.60-5.80) X10*6/uL Hgb (14.0-18.0) g/dl Hct (42.0-52.0) % MCV (80.0-98.0) fL MCH (27.0-33.0) pg MCHC (31.0-36.0) g/dl RDW (11.0-16.0) % Plt Count (160-400) X10*3/uL MPV (9.4-12.4) fL Immature Gran % (Auto) (0.0-0.4) % Neut % (Auto) (45-73) % Lymph % (Auto) (20-40) % [place] % (Auto) (2-11) % Eos % (Auto) (0-4) % Baso % (Auto) (0-2) % Lymph # (Auto) (1.2-4.9) X10*3/uL [place] # (Auto) (0.1-1.2) X10*3/uL Eos # (Auto) (0.0-0.4) X10*3/uL Baso # (Auto) (0.0-0.2) X10*3/uL Abs Immat Gran (auto) (0.00-0.03) X10*3/uL Absolute Neuts (auto) (2.0-8.3) x10*3/uL Absolute Nucleated RBC (0.0-0.012) X10*3/uL Nucleated RBC % (auto) (0.0-0.2) /100WBC Sodium (135-145) mmol/L Potassium (3.3-5.1) mmol/L Chloride (96-108) mmol/L Carbon Dioxide (22-29) mmol/L Anion Gap (12-20) BUN (9-16) mg/dL Creatinine (0.5-1.4) mg/dL Estim Creat Clear Calc Estimated GFR Random Glucose (60-115) mg/dL Calcium (8.4-10.2) mg/dL Magnesium (1.6-2.6) mg/dL Total Bilirubin (0.0-1.0) mg/dL Direct Bilirubin (0.0-0.5) mg/dL AST (5-37) U/L ALT (0-40) U/L Alkaline Phosphatase (39-117) U/L Troponin I High Sens (<3.5-35.0) ng/L B-Natriuretic Peptide 236 H (<100) pg/mL Total Protein (6.5-8.0) g/dL Albumin (3.5-5.0) g/dL Lipase (8-78) U/L Urine Color Urine Appearance Urine pH (5.0-9.0) Ur Specific [place] (1.005-1.025) Urine Protein (Neg-Trace) mg/dL Urine Glucose (UA) (Negative) mg/dL Urine Ketones (Negative) mg/dL Urine Blood (Negative) Urine Nitrite (Negative) Ur Leukocyte Esterase (Negative) COVID-19 (TABITHA) Negative (Negative) COVID-19 Clin Com See Note Influenza Type A ([facility]) Negative (Negative) Influenza Type B ([facility]) Negative (Negative) Influenza A & B Note See Note 11/20/22 11/20/22 Range/Units 20:28 21:19 WBC (4.8-10.8) X10*3/uL RBC (4.60-5.80) X10*6/uL Hgb (14.0-18.0) g/dl Hct (42.0-52.0) % MCV (80.0-98.0) fL MCH (27.0-33.0) pg MCHC (31.0-36.0) g/dl RDW (11.0-16.0) % Plt Count (160-400) X10*3/uL MPV (9.4-12.4) fL Immature Gran % (Auto) (0.0-0.4) % Neut % (Auto) (45-73) % Lymph % (Auto) (20-40) % [place] % (Auto) (2-11) % Eos % (Auto) (0-4) % Baso % (Auto) (0-2) % Lymph # (Auto) (1.2-4.9) X10*3/uL [place] # (Auto) (0.1-1.2) X10*3/uL Eos # (Auto) (0.0-0.4) X10*3/uL Baso # (Auto) (0.0-0.2) X10*3/uL Abs Immat Gran (auto) (0.00-0.03) X10*3/uL Absolute Neuts (auto) (2.0-8.3) x10*3/uL Absolute Nucleated RBC (0.0-0.012) X10*3/uL Nucleated RBC % (auto) (0.0-0.2) /100WBC Sodium (135-145) mmol/L Potassium (3.3-5.1) mmol/L Chloride (96-108) mmol/L Carbon Dioxide (22-29) mmol/L Anion Gap (12-20) BUN (9-16) mg/dL Creatinine (0.5-1.4) mg/dL Estim Creat Clear Calc Estimated GFR Random Glucose (60-115) mg/dL Calcium (8.4-10.2) mg/dL Magnesium (1.6-2.6) mg/dL Total Bilirubin (0.0-1.0) mg/dL Direct Bilirubin (0.0-0.5) mg/dL AST (5-37) U/L ALT (0-40) U/L Alkaline Phosphatase (39-117) U/L Troponin I High Sens 15.6 (<3.5-35.0) ng/L B-Natriuretic Peptide (<100) pg/mL Total Protein (6.5-8.0) g/dL Albumin (3.5-5.0) g/dL Lipase (8-78) U/L Urine Color Yellow Urine Appearance Clear Urine pH 5.0 (5.0-9.0) Ur Specific [place] 1.015 (1.005-1.025) Urine Protein Negative (Neg-Trace) mg/dL Urine Glucose (UA) Negative (Negative) mg/dL Urine Ketones Negative (Negative) mg/dL Urine Blood Negative (Negative) Urine Nitrite Negative (Negative) Ur Leukocyte Esterase Negative (Negative) COVID-19 (TABITHA) (Negative) COVID-19 Clin Com Influenza Type A ([facility]) (Negative) Influenza Type B ([facility]) (Negative) Influenza A & B Note <Dee Dee Harris, [employer] - Last Filed: 11/23/22 12:40> Lab Results 11/20/22 11/20/22 11/20/22 Range/Units 17:55 17:55 17:55 WBC 6.1 (4.8-10.8) X10*3/uL RBC 4.14 L (4.60-5.80) X10*6/uL Hgb 11.8 L (14.0-18.0) g/dl Hct 36.3 L (42.0-52.0) % MCV 87.7 (80.0-98.0) fL MCH 28.5 (27.0-33.0) pg MCHC 32.5 (31.0-36.0) g/dl RDW 13.9 (11.0-16.0) % Plt Count 269 (160-400) X10*3/uL MPV 10.2 (9.4-12.4) fL Immature Gran % (Auto) 0.7 H (0.0-0.4) % Neut % (Auto) 65.2 (45-73) % Lymph % (Auto) 26.5 (20-40) % [place] % (Auto) 5.3 (2-11) % Eos % (Auto) 2.1 (0-4) % Baso % (Auto) 0.2 (0-2) % Lymph # (Auto) 1.6 (1.2-4.9) X10*3/uL [place] # (Auto) 0.3 (0.1-1.2) X10*3/uL Eos # (Auto) 0.1 (0.0-0.4) X10*3/uL Baso # (Auto) 0.0 (0.0-0.2) X10*3/uL Abs Immat Gran (auto) 0.04 H (0.00-0.03) X10*3/uL Absolute Neuts (auto) 4.0 (2.0-8.3) x10*3/uL Absolute Nucleated RBC 0.000 (0.0-0.012) X10*3/uL Nucleated RBC % (auto) 0.0 (0.0-0.2) /100WBC Sodium 137 (135-145) mmol/L Potassium 4.2 (3.3-5.1) mmol/L Chloride 105 (96-108) mmol/L Carbon Dioxide 24 (22-29) mmol/L Anion Gap 12 (12-20) BUN 13 (9-16) mg/dL Creatinine 1.28 (0.5-1.4) mg/dL Estim Creat Clear Calc 53.7 Estimated GFR 53 Random Glucose 140 H (60-115) mg/dL Calcium 8.7 (8.4-10.2) mg/dL Magnesium 1.7 (1.6-2.6) mg/dL Total Bilirubin 0.5 (0.0-1.0) mg/dL Direct Bilirubin 0.2 (0.0-0.5) mg/dL AST 15 (5-37) U/L ALT 14 (0-40) U/L Alkaline Phosphatase 80 (39-117) U/L Troponin I High Sens 14.3 (<3.5-35.0) ng/L B-Natriuretic Peptide (<100) pg/mL Total Protein 6.9 (6.5-8.0) g/dL Albumin 3.6 (3.5-5.0) g/dL Lipase 59 (8-78) U/L Urine Color Urine Appearance Urine pH (5.0-9.0) Ur Specific [place] (1.005-1.025) Urine Protein (Neg-Trace) mg/dL Urine Glucose (UA) (Negative) mg/dL Urine Ketones (Negative) mg/dL Urine Blood (Negative) Urine Nitrite (Negative) Ur Leukocyte Esterase (Negative) COVID-19 ([facility]) (Negative) COVID-19 Clin Com Influenza Type A ([facility]) (Negative) Influenza Type B ([facility]) (Negative) Influenza A & B Note 11/20/22 11/20/22 11/20/22 Range/Units 17:55 17:55 17:55 WBC (4.8-10.8) X10*3/uL RBC (4.60-5.80) X10*6/uL Hgb (14.0-18.0) g/dl Hct (42.0-52.0) % MCV (80.0-98.0) fL MCH (27.0-33.0) pg MCHC (31.0-36.0) g/dl RDW (11.0-16.0) % Plt Count (160-400) X10*3/uL MPV (9.4-12.4) fL Immature Gran % (Auto) (0.0-0.4) % Neut % (Auto) (45-73) % Lymph % (Auto) (20-40) % [place] % (Auto) (2-11) % Eos % (Auto) (0-4) % Baso % (Auto) (0-2) % Lymph # (Auto) (1.2-4.9) X10*3/uL [place] # (Auto) (0.1-1.2) X10*3/uL Eos # (Auto) (0.0-0.4) X10*3/uL Baso # (Auto) (0.0-0.2) X10*3/uL Abs Immat Gran (auto) (0.00-0.03) X10*3/uL Absolute Neuts (auto) (2.0-8.3) x10*3/uL Absolute Nucleated RBC (0.0-0.012) X10*3/uL Nucleated RBC % (auto) (0.0-0.2) /100WBC Sodium (135-145) mmol/L Potassium (3.3-5.1) mmol/L Chloride (96-108) mmol/L Carbon Dioxide (22-29) mmol/L Anion Gap (12-20) BUN (9-16) mg/dL Creatinine (0.5-1.4) mg/dL Estim Creat Clear Calc Estimated GFR Random Glucose (60-115) mg/dL Calcium (8.4-10.2) mg/dL Magnesium (1.6-2.6) mg/dL Total Bilirubin (0.0-1.0) mg/dL Direct Bilirubin (0.0-0.5) mg/dL AST (5-37) U/L ALT (0-40) U/L Alkaline Phosphatase (39-117) U/L Troponin I High Sens (<3.5-35.0) ng/L B-Natriuretic Peptide 236 H (<100) pg/mL Total Protein (6.5-8.0) g/dL Albumin (3.5-5.0) g/dL Lipase (8-78) U/L Urine Color Urine Appearance Urine pH (5.0-9.0) Ur Specific [place] (1.005-1.025) Urine Protein (Neg-Trace) mg/dL Urine Glucose (UA) (Negative) mg/dL Urine Ketones (Negative) mg/dL Urine Blood (Negative) Urine Nitrite (Negative) Ur Leukocyte Esterase (Negative) COVID-19 ([facility]) Negative (Negative) COVID-19 Clin Com See Note Influenza Type A ([facility]) Negative (Negative) Influenza Type B ([facility]) Negative (Negative) Influenza A & B Note See Note 11/20/22 11/20/22 Range/Units 20:28 21:19 WBC (4.8-10.8) X10*3/uL RBC (4.60-5.80) X10*6/uL Hgb (14.0-18.0) g/dl Hct (42.0-52.0) % MCV (80.0-98.0) fL MCH (27.0-33.0) pg MCHC (31.0-36.0) g/dl RDW (11.0-16.0) % Plt Count (160-400) X10*3/uL MPV (9.4-12.4) fL Immature Gran % (Auto) (0.0-0.4) % Neut % (Auto) (45-73) % Lymph % (Auto) (20-40) % [place] % (Auto) (2-11) % Eos % (Auto) (0-4) % Baso % (Auto) (0-2) % Lymph # (Auto) (1.2-4.9) X10*3/uL [place] # (Auto) (0.1-1.2) X10*3/uL Eos # (Auto) (0.0-0.4) X10*3/uL Baso # (Auto) (0.0-0.2) X10*3/uL Abs Immat Gran (auto) (0.00-0.03) X10*3/uL Absolute Neuts (auto) (2.0-8.3) x10*3/uL Absolute Nucleated RBC (0.0-0.012) X10*3/uL Nucleated RBC % (auto) (0.0-0.2) /100WBC Sodium (135-145) mmol/L Potassium (3.3-5.1) mmol/L Chloride (96-108) mmol/L Carbon Dioxide (22-29) mmol/L Anion Gap (12-20) BUN (9-16) mg/dL Creatinine (0.5-1.4) mg/dL Estim Creat Clear Calc Estimated GFR Random Glucose (60-115) mg/dL Calcium (8.4-10.2) mg/dL Magnesium (1.6-2.6) mg/dL Total Bilirubin (0.0-1.0) mg/dL Direct Bilirubin (0.0-0.5) mg/dL AST (5-37) U/L ALT (0-40) U/L Alkaline Phosphatase (39-117) U/L Troponin I High Sens 15.6 (<3.5-35.0) ng/L B-Natriuretic Peptide (<100) pg/mL Total Protein (6.5-8.0) g/dL Albumin (3.5-5.0) g/dL Lipase (8-78) U/L Urine Color Yellow Urine Appearance Clear Urine pH 5.0 (5.0-9.0) Ur Specific [place] 1.015 (1.005-1.025) Urine Protein Negative (Neg-Trace) mg/dL Urine Glucose (UA) Negative (Negative) mg/dL Urine Ketones Negative (Negative) mg/dL Urine Blood Negative (Negative) Urine Nitrite Negative (Negative) Ur Leukocyte Esterase Negative (Negative) COVID-19 ([facility]) (Negative) COVID-19 Clin Com Influenza Type A ([facility]) (Negative) Influenza Type B ([facility]) (Negative) Influenza A & B Note <GENNARO Grajeda - Last Filed: 11/22/22 17:54> Lab Results 11/20/22 11/20/22 11/20/22 Range/Units 17:55 17:55 17:55 WBC 6.1 (4.8-10.8) X10*3/uL RBC 4.14 L (4.60-5.80) X10*6/uL Hgb 11.8 L (14.0-18.0) g/dl Hct 36.3 L (42.0-52.0) % MCV 87.7 (80.0-98.0) fL MCH 28.5 (27.0-33.0) pg MCHC 32.5 (31.0-36.0) g/dl RDW 13.9 (11.0-16.0) % Plt Count 269 (160-400) X10*3/uL MPV 10.2 (9.4-12.4) fL Immature Gran % (Auto) 0.7 H (0.0-0.4) % Neut % (Auto) 65.2 (45-73) % Lymph % (Auto) 26.5 (20-40) % [place] % (Auto) 5.3 (2-11) % Eos % (Auto) 2.1 (0-4) % Baso % (Auto) 0.2 (0-2) % Lymph # (Auto) 1.6 (1.2-4.9) X10*3/uL [place] # (Auto) 0.3 (0.1-1.2) X10*3/uL Eos # (Auto) 0.1 (0.0-0.4) X10*3/uL Baso # (Auto) 0.0 (0.0-0.2) X10*3/uL Abs Immat Gran (auto) 0.04 H (0.00-0.03) X10*3/uL Absolute Neuts (auto) 4.0 (2.0-8.3) x10*3/uL Absolute Nucleated RBC 0.000 (0.0-0.012) X10*3/uL Nucleated RBC % (auto) 0.0 (0.0-0.2) /100WBC Sodium 137 (135-145) mmol/L Potassium 4.2 (3.3-5.1) mmol/L Chloride 105 (96-108) mmol/L Carbon Dioxide 24 (22-29) mmol/L Anion Gap 12 (12-20) BUN 13 (9-16) mg/dL Creatinine 1.28 (0.5-1.4) mg/dL Estim Creat Clear Calc 53.7 Estimated GFR 53 Random Glucose 140 H (60-115) mg/dL Calcium 8.7 (8.4-10.2) mg/dL Magnesium 1.7 (1.6-2.6) mg/dL Total Bilirubin 0.5 (0.0-1.0) mg/dL Direct Bilirubin 0.2 (0.0-0.5) mg/dL AST 15 (5-37) U/L ALT 14 (0-40) U/L Alkaline Phosphatase 80 (39-117) U/L Troponin I High Sens 14.3 (<3.5-35.0) ng/L B-Natriuretic Peptide (<100) pg/mL Total Protein 6.9 (6.5-8.0) g/dL Albumin 3.6 (3.5-5.0) g/dL Lipase 59 (8-78) U/L Urine Color Urine Appearance Urine pH (5.0-9.0) Ur Specific [place] (1.005-1.025) Urine Protein (Neg-Trace) mg/dL Urine Glucose (UA) (Negative) mg/dL Urine Ketones (Negative) mg/dL Urine Blood (Negative) Urine Nitrite (Negative) Ur Leukocyte Esterase (Negative) COVID-19 ([facility]A) (Negative) COVID-19 Clin Com Influenza Type A ([facility]) (Negative) Influenza Type B ([facility]) (Negative) Influenza A & B Note 11/20/22 11/20/22 11/20/22 Range/Units 17:55 17:55 17:55 WBC (4.8-10.8) X10*3/uL RBC (4.60-5.80) X10*6/uL Hgb (14.0-18.0) g/dl Hct (42.0-52.0) % MCV (80.0-98.0) fL MCH (27.0-33.0) pg MCHC (31.0-36.0) g/dl RDW (11.0-16.0) % Plt Count (160-400) X10*3/uL MPV (9.4-12.4) fL Immature Gran % (Auto) (0.0-0.4) % Neut % (Auto) (45-73) % Lymph % (Auto) (20-40) % [place] % (Auto) (2-11) % Eos % (Auto) (0-4) % Baso % (Auto) (0-2) % Lymph # (Auto) (1.2-4.9) X10*3/uL [place] # (Auto) (0.1-1.2) X10*3/uL Eos # (Auto) (0.0-0.4) X10*3/uL Baso # (Auto) (0.0-0.2) X10*3/uL Abs Immat Gran (auto) (0.00-0.03) X10*3/uL Absolute Neuts (auto) (2.0-8.3) x10*3/uL Absolute Nucleated RBC (0.0-0.012) X10*3/uL Nucleated RBC % (auto) (0.0-0.2) /100WBC Sodium (135-145) mmol/L Potassium (3.3-5.1) mmol/L Chloride (96-108) mmol/L Carbon Dioxide (22-29) mmol/L Anion Gap (12-20) BUN (9-16) mg/dL Creatinine (0.5-1.4) mg/dL Estim Creat Clear Calc Estimated GFR Random Glucose (60-115) mg/dL Calcium (8.4-10.2) mg/dL Magnesium (1.6-2.6) mg/dL Total Bilirubin (0.0-1.0) mg/dL Direct Bilirubin (0.0-0.5) mg/dL AST (5-37) U/L ALT (0-40) U/L Alkaline Phosphatase (39-117) U/L Troponin I High Sens (<3.5-35.0) ng/L B-Natriuretic Peptide 236 H (<100) pg/mL Total Protein (6.5-8.0) g/dL Albumin (3.5-5.0) g/dL Lipase (8-78) U/L Urine Color Urine Appearance Urine pH (5.0-9.0) Ur Specific [place] (1.005-1.025) Urine Protein (Neg-Trace) mg/dL Urine Glucose (UA) (Negative) mg/dL Urine Ketones (Negative) mg/dL Urine Blood (Negative) Urine Nitrite (Negative) Ur Leukocyte Esterase (Negative) COVID-19 (TABITHA) Negative (Negative) COVID-19 Clin Com See Note Influenza Type A (KYMBERLY) Negative (Negative) Influenza Type B (KYMBERLY) Negative (Negative) Influenza A & B Note See Note 11/20/22 11/20/22 Range/Units 20:28 21:19 WBC (4.8-10.8) X10*3/uL RBC (4.60-5.80) X10*6/uL Hgb (14.0-18.0) g/dl Hct (42.0-52.0) % MCV (80.0-98.0) fL MCH (27.0-33.0) pg MCHC (31.0-36.0) g/dl RDW (11.0-16.0) % Plt Count (160-400) X10*3/uL MPV (9.4-12.4) fL Immature Gran % (Auto) (0.0-0.4) % Neut % (Auto) (45-73) % Lymph % (Auto) (20-40) % [place] % (Auto) (2-11) % Eos % (Auto) (0-4) % Baso % (Auto) (0-2) % Lymph # (Auto) (1.2-4.9) X10*3/uL [place] # (Auto) (0.1-1.2) X10*3/uL Eos # (Auto) (0.0-0.4) X10*3/uL Baso # (Auto) (0.0-0.2) X10*3/uL Abs Immat Gran (auto) (0.00-0.03) X10*3/uL Absolute Neuts (auto) (2.0-8.3) x10*3/uL Absolute Nucleated RBC (0.0-0.012) X10*3/uL Nucleated RBC % (auto) (0.0-0.2) /100WBC Sodium (135-145) mmol/L Potassium (3.3-5.1) mmol/L Chloride (96-108) mmol/L Carbon Dioxide (22-29) mmol/L Anion Gap (12-20) BUN (9-16) mg/dL Creatinine (0.5-1.4) mg/dL Estim Creat Clear Calc Estimated GFR Random Glucose (60-115) mg/dL Calcium (8.4-10.2) mg/dL Magnesium (1.6-2.6) mg/dL Total Bilirubin (0.0-1.0) mg/dL Direct Bilirubin (0.0-0.5) mg/dL AST (5-37) U/L ALT (0-40) U/L Alkaline Phosphatase (39-117) U/L Troponin I High Sens 15.6 (<3.5-35.0) ng/L B-Natriuretic Peptide (<100) pg/mL Total Protein (6.5-8.0) g/dL Albumin (3.5-5.0) g/dL Lipase (8-78) U/L Urine Color Yellow Urine Appearance Clear Urine pH 5.0 (5.0-9.0) Ur Specific [place] 1.015 (1.005-1.025) Urine Protein Negative (Neg-Trace) mg/dL Urine Glucose (UA) Negative (Negative) mg/dL Urine Ketones Negative (Negative) mg/dL Urine Blood Negative (Negative) Urine Nitrite Negative (Negative) Ur Leukocyte Esterase Negative (Negative) COVID-19 (TABITHA) (Negative) COVID-19 Clin Com Influenza Type A (KYMBERLY) (Negative) Influenza Type B (KYMBERLY) (Negative) Influenza A & B Note <GENNARO Webster - Last Filed: 11/25/22 12:51> Independent Interpretation I performed an independent interpretation of an: EKG (Atrial fibrillation/atrial flutter, heart rate 55, right bundle- branch block, no acute ST elevations or depressions no comparison available) and Plain X-Ray <Jim Costello MD - Last Filed: 11/21/22 06:14> Interpretation: Chest x-ray no acute cardiopulmonary disease <Jim Costello MD - Last Filed: 11/21/22 06:14> Radiology Impression Discussion of test interpretation with radiology: I have reviewed the radiologist's reading. ( XR/XR chest 1V IMPRESSION: Unremarkable examination. Dictated By:Migel Matamoros MDSigned By:<Electronically signed by Migel Matamoros MD in OV>11/20/22 1818 agree with interpretation) <Jim Costello MD - Last Filed: 11/21/22 06:14> External Record Review No records available <Jim Costello MD - Last Filed: 11/21/22 06:14> Prescription Management I considered prescription management with: Antibiotic <Jim Costello MD - Last Filed: 11/21/22 06:14> Discharge Plan Discharge Clinical Impression: Episode of generalized weakness <GENNARO Falcon - Last Filed: 11/20/22 17:18> Patient Disposition: Xfer SNF <GENNARO Falcon - Last Filed: 11/20/22 17:18> [facility] <GENNARO Falcon - Last Filed: 11/20/22 17:18> [facility] <Jim Costello MD - Last Filed: 11/21/22 06:14> [facility] <Dee Dee Harris NP - Last Filed: 11/23/22 12:40> [facility] <GENNARO Grajeda - Last Filed: 11/22/22 17:54> [facility] <GENNARO Webster - Last Filed: 11/25/22 12:51> Instructions: Weakness (ED) <GENNARO Falcon - Last Filed: 11/20/22 17:18> Additional Instructions: Follow up with your primary care provider. Return to the emergency department immediately if your symptoms worsen or if you develop any dizziness, shortness of breath, difficulty breathing, chest pain, blurry vision, loss of vision, nausea, vomiting, abdominal pain, fever, chills, back pain, or any other complaints. <GENNARO Falcon - Last Filed: 11/20/22 17:18> Prescriptions: New lorazepam [Ativan] 1 mg tablet 1 mg PO BID PRN (Reason: anxiety) Qty: 30 0RF No Action cyanocobalamin (vitamin B-12) 1,000 mcg tablet 1,000 mcg PO DAILY tamsulosin 0.4 mg capsule 0.4 mg PO BEDTIME mirtazapine 30 mg tablet 30 mg PO BEDTIME metoprolol tartrate 50 mg tablet 50 mg PO BID sertraline 25 mg tablet 25 mg PO DAILY lorazepam 1 mg tablet 1 mg PO BID PRN (Reason: anxiety) Eliquis 5 mg tablet 5 mg PO BID <GENNARO Falcon - Last Filed: 11/20/22 17:18> Referrals: [facility] [Outside] <GENNARO Falcon - Last Filed: 11/20/22 17:18>
[2022-11-20 17:13] VITALS: BP 149/53; PULSE 51; RESP 18; TEMP 37.3; O2SAT 98; BMI 32.5
--- NOTE | 2022-11-20 17:14 | ECG_ITS ---
Test Reason : FAILURE TO THRIVE Blood Pressure : / mmHG Vent. Rate : 055 BPM Atrial Rate : 000 BPM P-R Int : 000 ms QRS Dur : 130 ms QT Int : 452 ms P-R-T Axes : 000 068 005 degrees QTc Int : 432 ms Atrial fibrillation with slow ventricular response Right bundle branch block Abnormal ECG No previous ECGs available Referred By: Marly Feng Electronically Signed By:VALE CHENG MD
[2022-11-20 18:02] LABS: MANUAL DIFF FLAG NO
[2022-11-20 18:10] LABS: Basophils Percent Auto 0.2 % (0-2); Eosinophils Absolute Auto 0.1 X10*3/uL (0.0-0.4); Eosinophils Percent Auto 2.1 % (0-4); Hematocrit 36.3 % (42.0-52.0); Hemoglobin 11.8 g/dl (14.0-18.0); Imm Gran Abs Auto 0.04 X10*3/uL (0.00-0.03); Imm Gran Pct Auto 0.7 % (0.0-0.4); Lymphocytes Absolute Auto 1.6 X10*3/uL (1.2-4.9); Lymphocytes Percent Auto 26.5 % (20-40); Mean Corpuscular HGB Conc 32.5 g/dl (31.0-36.0); Mean Corpuscular Hemoglobin 28.5 pg (27.0-33.0); Mean Corpuscular Volume 87.7 fL (80.0-98.0); Mean Platelet Volume 10.2 fL (9.4-12.4); Monocytes Absolute Auto 0.3 X10*3/uL (0.1-1.2); Monocytes Percent Auto 5.3 % (2-11); Neutrophils Percent Auto 65.2 % (45-73); Platelet Count 269 X10*3/uL (160-400); Red Blood Count 4.14 X10*6/uL (4.60-5.80); Red Cell Distribution Width 13.9 % (11.0-16.0); White Blood Count 6.1 X10*3/uL (4.8-10.8)
[2022-11-20 18:19] LABS: COVID-19 Test Negative (Negative); IDNOW Serial# 9DB6401D; IDNOW Serial# BCCEAD1C; Influenza A Negative (Negative); Influenza B2 Negative (Negative)
[2022-11-20 18:27] LABS: B Type Natriuretic Peptide 236 pg/mL (<100)
[2022-11-20 18:28] LABS: Alanine Aminotransferase 14 U/L (0-40); Albumin Level 3.6 g/dL (3.5-5.0); Alkaline Phosphatase 80 U/L (39-117); Anion Gap 12 (12-20); Aspartate Amino Transferase 15 U/L (5-37); Bilirubin Direct 0.2 mg/dL (0.0-0.5); Bilirubin Total 0.5 mg/dL (0.0-1.0); Blood Urea Nitrogen 13 mg/dL (9-16); Calcium 8.7 mg/dL (8.4-10.2); Carbon Dioxide 24 mmol/L (22-29); Chloride 105 mmol/L (96-108); Creatinine Clr Calc Pharmacy 53.7; Estimated Glomerular Filt Rate 53; Glucose Random 140 mg/dL (60-115); Lipase 59 U/L (8-78); Magnesium 1.7 mg/dL (1.6-2.6); Potassium 4.2 mmol/L (3.3-5.1); Sodium 137 mmol/L (135-145); Total Protein 6.9 g/dL (6.5-8.0)
[2022-11-20 18:35] LABS: Troponin-I High Sensitivity 14.3 ng/L (<3.5-35.0)
[2022-11-20 20:00] VITALS: BP 131/69; PULSE 56; RESP 15; TEMP 36.5; O2SAT 98
--- NOTE | 2022-11-20 20:00 | PC.NURSE ---
small reddened area of skin noted above pt buttocks.
--- NOTE | 2022-11-20 20:19 | PC.NURSE ---
pt alert, oriented to time, and aware that they are in the hospital. hall monitor intact - afib on the monitor. vitals stable. will continue to monitor.
[2022-11-20 20:34] LABS: Appearance Urine Clear; Color Urine Yellow; Glucose Urine UA Negative (Negative); Leukocyte Esterase Urine Negative (Negative); Nitrite Urine Negative (Negative); Specific Gravity - Urine 1.015 (1.005-1.025); Urine Blood Negative (Negative); Urine Ketones Negative (Negative); Urine Protein Negative (Neg-Trace)
[2022-11-20 21:47] LABS: Troponin-I High Sensitivity 15.6 ng/L (<3.5-35.0)
[2022-11-20 22:25] VITALS: BP 127/67; PULSE 61; RESP 15; TEMP 36.6; O2SAT 98
[2022-11-20] MEDS: Metoprolol Tartrate 50 MG TABLET PO (23:16)
[2022-11-20] MEDS: Tamsulosin HCL 0.4 MG CAPSULE PO (23:16)
[2022-11-20] MEDS: Mirtazapine 7.5 MG TABLET 22.5 MG PO (23:16)
[2022-11-20] MEDS: Apixaban 5 MG TABLET PO (23:16)
--- NOTE | 2022-11-20 23:49 | PC.NURSE ---
pt is resting comfortably on stretcher at this time. Pt took all night medications in cup at once with water with no difficulty. Pt reports to this RN that he feels lately he has been forgetting some things. Daughter Marli would like pt to be tested for alzheimers or dementia . Pt verbalizes that he will be here overnight for PT evaluation
[2022-11-20 23:51] VITALS: BP 139/72; PULSE 72; RESP 16; O2SAT 97
--- NOTE | 2022-11-21 02:40 | PC.NURSE ---
pt moved from room 15 to room 13 so this RN and care team could keep a better eye on him. Pt was found wandering out into hallway, easily re-directable to bed. Pt is calm and cooperative at this time, denies pain, respirations even and unlabored, no apparent distress. Continue plan of care for physical therapy and case management eval in am
[2022-11-21 02:41] VITALS: BP 126/92; PULSE 54; RESP 16; O2SAT 97
--- NOTE | 2022-11-21 02:59 | PC.NURSE ---
pt attempting to get out of bed again, was able to be re-directed back in. Pt reports he feels confused and cannot remember much. Pt in no apparent distress, now resting again
--- NOTE | 2022-11-21 03:09 | PC.NURSE ---
Report received from Mara WATKINS.
[2022-11-21 05:45] VITALS: BP 123/67; PULSE 70; RESP 16; TEMP 36.8; O2SAT 98
--- NOTE | 2022-11-21 06:56 | PC.NURSE ---
Pitent confused poor safety awareness noted, patient needs constant redirection walked up to nursing station unassisted escorted back to bed safety measures reinforced with patient. No respiratory distress noted will CTM
[2022-11-21 07:20] VITALS: BP 138/48; PULSE 68; RESP 17; O2SAT 98
[2022-11-21] MEDS: LORazepam 1 MG TABLET PO ×2 (08:08→20:38)
[2022-11-21] MEDS: Cyanocobalamin (Vitamin B-12) 1,000 MCG TABLET 1000 MCG PO (08:20)
--- NOTE | 2022-11-21 09:45 | PC.NURSE ---
Agitation improved no distress noted easily redirected currently will CTM
--- NOTE | 2022-11-21 10:08 | PC.NURSE ---
Message sent to Case management to see what plan for patient is will CTM
--- NOTE | 2022-11-21 10:21 | PC.NURSE ---
Spoke with case management about plan of care will await development, patient sleeping no distress noted
--- NOTE | 2022-11-21 10:48 | PHA.MEDREC ---
Pharmacy Consult ? Medication Reconciliation Pharmacy has completed the medication reconciliation. Tried calling patients daughter with no answer and not able to leave voicemail. Med rec completed via claim history and most recent discharge from [facility] on 10/28/22. Patient has filled and picked up both xarelto (09/30/22) and eliquis (11/19/22) recently but most recent discharge from [facility] states patient should be on eliquis
--- NOTE | 2022-11-21 11:14 | PC.NURSE ---
assumed care of pt at 1100, pt sleeping, RR even and unlabored. no new orders at this time.
--- NOTE | 2022-11-21 12:03 | MHC.CM.ED ---
Received consult for assessment of d/c needs: Met with pt who states he is increasingly weak and in need of short term rehab. Pt lives alone, has family support at night provided by son and some limited services from dtr. Children assist w/transportation and shopping. Pt uses a cane and walker, is fully vaccinated and has been to STR in [place] in the past. He states if he needs STR he would like to stay local. Pt will need a PT eval - broad local STR referrals made - to follow for likely SNF placement.
[2022-11-21 14:19] VITALS: BP 120/46; PULSE 78; RESP 13; O2SAT 97
--- NOTE | 2022-11-21 17:35 | PC.NURSE ---
Patient transferred from ED,alert and oriented.Incontinent of urine,patient cleansed,redness present to coocyx and bilateral buttocks,protective cream applied.Open wound present on right buttock ,1.5 cm long,redness around,area cleansed with normal saline and foam drsg applied,Dee Dee Harris notified of need for evaluation of this wound.Patient has no complaints at present,appear comfortable.
[2022-11-21] MEDS: Sertraline HCL 25 MG TABLET PO (18:22)
[2022-11-21] MEDS: Tamsulosin HCL 0.4 MG CAPSULE PO (20:35)
[2022-11-21] MEDS: Mirtazapine 30 MG TABLET PO (20:35)
[2022-11-21] MEDS: Apixaban 5 MG TABLET PO (20:35)
[2022-11-21] MEDS: Metoprolol Tartrate 50 MG TABLET PO (20:36)
[2022-11-21 20:41] VITALS: BP 132/66; PULSE 74; RESP 18; TEMP 36.5; O2SAT 96
--- NOTE | 2022-11-21 23:17 | PC.NURSE ---
Report received. Pt resting quietly with eyes closed. Respirations even and unlabored. No acute distress noted.
[2022-11-22 01:10] VITALS: BP 131/74; PULSE 81; RESP 17; TEMP 36.7; O2SAT 96
[2022-11-22] MEDS: Acetaminophen 325 MG TABLET 650 MG PO (01:10)
--- NOTE | 2022-11-22 01:14 | PC.NURSE ---
Pt given tylenol and water per request. Denies any other needs at this time.
--- NOTE | 2022-11-22 02:05 | PC.NURSE ---
diet provided at this time
[2022-11-22 04:50] VITALS: BP 127/69; PULSE 79; RESP 16; O2SAT 95
[2022-11-22] MEDS: Sertraline HCL 25 MG TABLET PO (08:48)
[2022-11-22] MEDS: Apixaban 5 MG TABLET PO ×2 (08:48→19:49)
[2022-11-22] MEDS: Cyanocobalamin (Vitamin B-12) 1,000 MCG TABLET 1000 MCG PO (08:48)
[2022-11-22] MEDS: Metoprolol Tartrate 50 MG TABLET PO ×2 (08:48→19:49)
[2022-11-22 08:52] VITALS: BP 144/61; PULSE 72; RESP 18; TEMP 36.8; O2SAT 98
[2022-11-22] MEDS: LORazepam 1 MG TABLET PO ×2 (08:52→19:49)
--- NOTE | 2022-11-22 12:14 | MHC.CM.ED ---
Patient remains in ER overflow. Physical therapy eval completed. Short term rehab is recommended. [facility] and [facility] to offer a bed. Attempted to meet with patient in regards to discharge planning. Patient is currently sleeping. No family at bedside. Attempted to speak with patient's daughter/HCP, Marli via telephone at [phone]. Left message requesting return telephone call. Continue to monitor for d/c needs.
[2022-11-22 14:00] VITALS: BP 138/81; PULSE 96; RESP 16; TEMP 36.7; O2SAT 56
--- NOTE | 2022-11-22 16:05 | MHC.CM.ED ---
Met with patient again in regards to discharge planning. Patient requesting CM speak to his daughter about facility choices. T/W spoke with Marli via telephone. [facility] choice. Facility made aware. Waitin to hear when patient can transfer. Continue to monitor for d/c needs.
--- NOTE | 2022-11-22 18:37 | MHC.CM.ED ---
CM spoke with daughter, Marli ([phone]) in regards to insurance coverage. Pt has Medicare and [facility] Medicare Advantage ([facility]) Member # [id number] Group# [id number]. Daughter is in process of completing information for [employer], but not yet approved. [facility] is submitting for authorization.
[2022-11-22 19:44] VITALS: BP 124/58; PULSE 58; RESP 16; TEMP 36.4; O2SAT 99
[2022-11-22] MEDS: Mirtazapine 30 MG TABLET PO (19:49)
[2022-11-22] MEDS: Tamsulosin HCL 0.4 MG CAPSULE PO (19:49)
[2022-11-23 05:13] VITALS: BP 148/44; PULSE 63; RESP 17; TEMP 37.1; O2SAT 95
--- NOTE | 2022-11-23 06:19 | PC.NURSE ---
pt assessed, slept during the shift, denies any complaints
[2022-11-23] MEDS: Metoprolol Tartrate 50 MG TABLET PO ×2 (08:29→20:21)
[2022-11-23] MEDS: Cyanocobalamin (Vitamin B-12) 1,000 MCG TABLET 1000 MCG PO (08:36)
[2022-11-23] MEDS: Apixaban 5 MG TABLET PO ×2 (08:36→20:21)
[2022-11-23] MEDS: LORazepam 1 MG TABLET PO ×2 (08:36→20:45)
[2022-11-23] MEDS: Sertraline HCL 25 MG TABLET PO (08:36)
--- NOTE | 2022-11-23 08:50 | PC.NURSE ---
Pt ambulated to restroom with walker, steady gait. Pt was washed up by health care sanitary technician and changed into fresh hospital attire. Pt's bed cleaned and changed into fresh linen. Pt ate 100% of breakfast and attempted to call daughter with no answer.
--- NOTE | 2022-11-23 09:43 | MHC.EDTECH ---
Pt was assisted to the BR with walker and stand by assistance. Pt was able to pull alarm when finished. Pt was then given a partial bed bath which he only needed limited assistance with. Pt needed help with cleaning perineal area. Pt was then assisted with dressing and ambulating back to room. Pt ambulated 200ft in total. Pt tolerated activity well.
--- NOTE | 2022-11-23 10:56 | PC.NURSE ---
Addendum entered by Ashia Canseco RN 11/23/22 11:01: Pts wound appears smaller at roughly 3/4in. New dressing applied. Original Note: Dressing to pts right butt cheek changed.
--- NOTE | 2022-11-23 13:11 | MHC.CM.ED ---
Addendum entered by Trina Floyd 11/23/22 16:11: Received telephone call from [facility]. Appeal has been filed. Requested clinical info be faxed to [phone]. Appeal review can take up to 3 days, even when expedited. Clinicals faxed as requested. Original Note: Patient remains in ER overflow. Received notification from [facility] that [facility] is requesting peer to peer. Peer to peer completed by Dee Dee FLORES. Received notification [facility] denied short term rehab. Attempted to meet with patient in regards to this. Patient is currently sleeping. Spoke with patient's daughter, Marli via telephone. Marli will file appeal with [facility] via telephone at [phone]. Continue to monitor for d/c needs.
[2022-11-23 13:45] VITALS: BP 153/55; PULSE 63; RESP 16; O2SAT 97
[2022-11-23 20:19] VITALS: BP 134/65; PULSE 68; RESP 18; TEMP 36.8; O2SAT 99
[2022-11-23] MEDS: Acetaminophen 325 MG TABLET 650 MG PO (20:20)
[2022-11-23] MEDS: Tamsulosin HCL 0.4 MG CAPSULE PO (20:20)
[2022-11-23] MEDS: Mirtazapine 30 MG TABLET PO (20:20)
--- NOTE | 2022-11-24 00:11 | MHC.EDTECH ---
pt rang requesting medication for sllep. This residential mortgage underwriter asked nurse if patient was due for any medication. Patient recieved meds at 2044 .this information relayed to patient. This residential mortgage underwriter helped patient reposition himself in bed and emptied urinal.
[2022-11-24 04:05] VITALS: BP 144/68; PULSE 76; RESP 14; TEMP 36.6; O2SAT 94
--- NOTE | 2022-11-24 06:43 | PC.NURSE ---
breakfast tray provided
[2022-11-24] MEDS: Cyanocobalamin (Vitamin B-12) 1,000 MCG TABLET 1000 MCG PO (08:29)
[2022-11-24] MEDS: Apixaban 5 MG TABLET PO ×2 (08:29→20:04)
[2022-11-24] MEDS: Metoprolol Tartrate 50 MG TABLET PO ×2 (08:29→20:04)
[2022-11-24] MEDS: LORazepam 1 MG TABLET PO ×2 (08:31→19:48)
[2022-11-24] MEDS: Acetaminophen 325 MG TABLET 650 MG PO (08:31)
--- NOTE | 2022-11-24 08:32 | MHC.EDTECH ---
total bed change due to soiling. (bm) cleaned patient and applied barrier cream to buttocks. new pants.
[2022-11-24] MEDS: Sertraline HCL 25 MG TABLET PO (09:54)
[2022-11-24 16:26] VITALS: BP 116/61; PULSE 65; RESP 16; TEMP 36.4; O2SAT 98
[2022-11-24 19:50] VITALS: BP 113/63; PULSE 66; RESP 18; TEMP 36.7; O2SAT 97
[2022-11-24] MEDS: Mirtazapine 30 MG TABLET PO (20:04)
[2022-11-24] MEDS: Tamsulosin HCL 0.4 MG CAPSULE PO (20:04)
--- NOTE | 2022-11-25 | PC.NURSE ---
Received report from off going RN, Pt resting in bed quietly w/ eyes closed. VSS, Safety measures maintained.
[2022-11-25 06:00] VITALS: BP 125/62; PULSE 57; RESP 15; TEMP 37; O2SAT 98
[2022-11-25 09:17] VITALS: BP 130/57; PULSE 70; RESP 16; O2SAT 97
[2022-11-25] MEDS: Apixaban 5 MG TABLET PO (09:19)
[2022-11-25] MEDS: LORazepam 1 MG TABLET PO (09:19)
[2022-11-25] MEDS: Cyanocobalamin (Vitamin B-12) 1,000 MCG TABLET 1000 MCG PO (09:19)
[2022-11-25] MEDS: Metoprolol Tartrate 50 MG TABLET PO (09:19)
[2022-11-25] MEDS: Sertraline HCL 25 MG TABLET PO (09:19)
--- NOTE | 2022-11-25 09:21 | PC.NURSE ---
Alert and oriented, resp even and unlabored. Ambulated to bathroom using walker and one assist. Medicated per the MAR, offering no complaints vss. Call morse within reach.
--- NOTE | 2022-11-25 10:08 | MHC.CM.ED ---
Addendum entered by Trina Floyd 11/25/22 12:47: Patient can leave for [facility] at 130pm. Tayo JAFFE booked. [facility] with chart. Patient, Allyson WATKINS and Rachel BURDICK aware. Attempted to notify patient's daughter/HCP, Marli via telephone at [phone]. Left message with discharge plan. Addendum entered by Trina Floyd 11/25/22 11:15: Received telephone call from [facility]. Short term rehab has been approved. Approval# [id number]. [facility] made aware. Original Note: Patient remains in ER overflow. Patient's daughter filed an appeal to denial of STR from [facility]. This can take up to 3 business days. Still waiting to hear if denial will be reversed. Continue to monitor for d/c needs.
--- NOTE | 2022-11-25 13:35 | PC.NURSE ---
Plan for discharge to [facility] via EMS. Patient aware of plan, awaiting transport.
== END 2022-11-25 13:58 | disposition skilled nursing facility (03) ==
PROVIDERS: Physician Assistant; Emergency Provider Emergency Medicine; PCP Nurse Practitioner Family
DX: R53.1 Weakness (principal); L98.419 Non-pressure chronic ulcer of buttock with unspecified severity; I10 Essential (primary) hypertension; F03.90 Unspecified dementia, unspecified severity, without behavioral disturbance, psychotic disturbance, mood disturbance, and anxiety; R26.81 Unsteadiness on feet; Z79.01 Long term (current) use of anticoagulants; Z79.899 Other long term (current) drug therapy; Z20.822 Contact with and (suspected) exposure to COVID-19
CPT/HCPCS: 36415; 71045; 80048; 80076; 81003; 83690; 83735; 83880; 84484; 85025; 87502; 87635; 93005; 97162; 99285